=== PATIENT | female | born 1950 | race African-American/Black ===

== ENCOUNTER 2018-11-29 07:18 | Inpatient (IN) | payer OTHER ==
[2018-11-23 09:59] VITALS: BMI 42.5
--- NOTE | 2018-11-29 08:29 | HP ---
History & Physical Update - History History: No Change - Physical Physical: No Change - Assessment Assessment: No Change - Plan Plan: No Change
[2018-11-29] MEDS ORDERED: DEXAMETHASONE SOD PHOSPHATE/PF 10 MG/ML SDV ONE (11:27)
[2018-11-29] MEDS ORDERED: BUPIVACAINE LIPOSOME/PF (EXPAREL) 266 MG/20 ML VIAL ONE (11:28)
[2018-11-29] MEDS ORDERED: BUPIVACAINE HCL/PF (5 MG/ML) 30 ML VIAL IJ ONE ×2 (11:28→11:35)
[2018-11-29] MEDS ORDERED: MIDAZOLAM HCL 2 MG/2 ML SINGLE DOSE VIAL ONE ×2 (11:28→11:35)
[2018-11-29] MEDS ORDERED: THROMBIN (RECOMBINANT) 5,000 UNIT VIAL TP ONE (12:09)
[2018-11-29] MEDS ORDERED: GUM MASTIC/STORAX/MSAL/ALCOHOL 1 DRP DROPSBTL MC ONE (12:10)
[2018-11-29] MEDS ORDERED: DEXAMETHASONE SOD PHOSPHATE 4 MG/1 ML VIAL ONE (12:32)
[2018-11-29] MEDS ORDERED: ceFAZolin SODIUM 1 GM VIAL ONE (12:32)
[2018-11-29] MEDS ORDERED: ONDANSETRON 4 MG/2 ML VIAL ONE ×2 (12:32→15:08)
[2018-11-29] MEDS ORDERED: THROMBIN (BOVINE) 5,000 UNIT VIAL TP ONE (14:14)
[2018-11-29] MEDS ORDERED: GELATIN SPONGE,ABSORBABLE 1 GM PACKET TP ONE (14:14)
[2018-11-29] MEDS ORDERED: ONDANSETRON 4 MG/2 ML VIAL IVPUSH PRN (14:27)
[2018-11-29] MEDS ORDERED: KETOROLAC TROMETHAMINE 30 MG/1 ML VIAL IVPUSH PRN (14:27)
[2018-11-29] MEDS ORDERED: oxyCODONE HCL 5 MG TABLET PO PRN (14:27)
[2018-11-29] MEDS ORDERED: LACTATED RINGERS SOLUTION 1,000 ML IV SCH (14:30)
--- NOTE | 2018-11-29 14:44 | OP ---
Operative Note - Note: Operative Date: 11/29/18 Pre-Operative Diagnosis: lumbar spondylolisthesis Operation: posterior decompression, instrumentation, fusion, transforaminal interbody fusion of L4-L5 with neuromonitoring and allograft Surgeon: Ramesh Morris Director Marketing Analytics: Sue Pradhan Anesthesiologist/POST OFFICE MARKUP CLERK: Juni Gray Anesthesia: Spinal Estimated Blood Loss (mls): 20 Fluid Volume Replaced (mls): 600 Operative Report Dictated: Yes
--- NOTE | 2018-11-29 14:45 | SURG ---
Surgery Economics Instructor Note Economics Instructor: Sue Pradhan PA-C Date of Service: 11/29/18 Diagnosis: lumbar spondylolisthesis Procedure: posterior decompression, instrumentation, fusion, transforaminal interbody fusion of L4-L5 with neuromonitoring and allograft I was present for the entirety of the operative procedure. For further detail, please refer to operative report. Visit type - Case Type Case Type: Scheduled - Emergency Emergency Visit: No - New patient This patient is new to me today: Yes Date on this admission: 11/29/18
[2018-11-29] MEDS ORDERED: ACETAMINOPHEN 325 MG TABLET (FP) PO SCH ×2 (15:00→21:00)
[2018-11-29] MEDS ORDERED: ACETAMINOPHEN INJECTION 100 ML IVPB ONE (15:04)
[2018-11-29] MEDS: ACETAMINOPHEN 1000 MG/100 ML VIAL (NON FORMULARY) IVPB ONE ×2 (15:05→16:16)
[2018-11-29] MEDS ORDERED: diazePAM 2 MG TABLET ONE (15:08)
[2018-11-29] MEDS: diazePAM 2 MG TABLET PO SCH (16:17)
[2018-11-29] MEDS ORDERED: diazePAM 2 MG TABLET PO SCH (18:00)
[2018-11-29] MEDS: oxyCODONE HCL 5 MG TABLET PO PRN ×2 (18:03→21:54)
[2018-11-29] MEDS: CEFAZOLIN 1 GM/D5W 1 GM/50 ML BAG IVPB SCH (20:00)
[2018-11-29] MEDS: ACETAMINOPHEN 325 MG TABLET (FP) PO SCH (21:54)
[2018-11-29] MEDS: DOCUSATE SODIUM 100 MG CAPSULE (FP) PO SCH (21:54)
--- NOTE | 2018-11-29 23:03 | OP ---
DATE OF OPERATION: 11/29/2018 PREOPERATIVE DIAGNOSES: 1. Spinal stenosis, L4-L5. 2. Spondylolisthesis, L4-L5. POSTOPERATIVE DIAGNOSES: 1. Spinal stenosis, L4-L5. 2. Spondylolisthesis, L4-L5. PROCEDURE PERFORMED: 1. Transforaminal lumbar interbody fusion, L4-L5. 2. Placement of instrumentation at L4-L5. 3. Placement of interbody cage. SURGEON: Ramesh Morris MD INVESTIGATION DIVISION CAPTAIN: VAHID Leal ESTIMATED BLOOD LOSS: 50 mL. INTRAVENOUS FLUIDS: Per Anesthesia. ANESTHESIA: Spinal/TLIF block. COMPLICATIONS: There were none. DISPOSITION: Patient brought to the PACU in stable condition. INDICATION FOR SURGERY: The patient is a 68-year-old female who has been suffering from pain from her back down to her legs. X-rays and MRI were completed, which showed that she has a spondylolisthesis at L4-L5 contributing to stenosis at the level. She had gone through an exhaustive course of treatment for this, which included medications, physical therapy as well as injections. Unfortunately, her pain continued to persist despite all this. At this point, risks, benefits, alternatives discussed and the patient consented to surgery. The patient was brought to the operating room by the Anesthesia Staff. After appropriate patient identification was performed, spinal anesthesia was given. A TLIF block was also given. The patient was able to position herself prone onto the OR table with all areas of bony prominence well-padded at this time. The C-arm was brought in and the L4 and L5 pedicles marked off. Her back was prepped and draped in a sterile manner. When timeout was completed, incisions were made bilaterally over the L4 and L5 pedicles. Dissection was carried down to underlying fascia. Fascia was then split open at this time and the appropriate retractors then placed in. Using C-arm guidance, trocars were then advanced into both the L4 and L5 pedicles. Through the trocar, a wire was inserted. Over the wire, a tap and screw was inserted. On the left-hand side, retractor was placed and set up to expose the L4-L5 facet joint. This was confirmed with an osteotome. The facet joint was removed. The disk was entered using a series of pituitaries, Kerrisons, and curettes. Diskectomy was completed. The endplates were decorticated at this time, bone graft was laid down. A cage full of bone graft was placed in. Tulip heads were placed over the screws. A colten was measured and placed endcaps and compression was applied. On the right-hand side, a colten was measured and placed endcaps and compression was applied. AP and lateral x-rays confirmed instrumentation to be in good position. The fascia was closed with a No. 1 Vicryl suture, subcutaneous tissue closed with 2-0 Vicryl suture, skin was closed with 3-0 Monocryl suture. Dermabond was applied, Steri-Strips were applied, sterile dressing was applied. The patient was placed supine on her bed and brought to the PACU in stable condition. Nel GENTILE/[id number] MTDD
[2018-11-30] MEDS: CEFAZOLIN 1 GM/D5W 1 GM/50 ML BAG IVPB SCH (01:19)
[2018-11-30] MEDS: oxyCODONE HCL 5 MG TABLET PO PRN (02:08)
[2018-11-30] MEDS: ACETAMINOPHEN 325 MG TABLET (FP) PO SCH ×2 (02:09→09:05)
[2018-11-30] MEDS: diazePAM 2 MG TABLET PO SCH (04:12)
[2018-11-30 07:05] VITALS: BP 124/60; PULSE 86; TEMP 98.2
[2018-11-30 08:13] LABS: HEMATOCRIT 38.3 % (32.4-45.2); HEMOGLOBIN 12.2 GM/dl (10.7-15.3); MCH 23.7 pg (25.7-33.7); MCHC 31.9 g/dl (32.0-36.0); MEAN CELL VOLUME 74.4 fl (80-96); MEAN PLT VOLUME 10.1 fl (7.5-11.1); PLATELET COUNT 199 K/MM3 (134-434); RBC 5.15 M/mm3 (3.60-5.2); RDW 14.3 % (11.6-15.6); WHITE BLOOD COUNT 11.8 K/mm3 (4.0-10.8)
--- NOTE | 2018-11-30 08:14 | DS ---
Physical Exam: SUBJECTIVE: Patient seen and examined this am oob to chair/ambulating with assistance yesterday. Voiding without difficulty. No CP/SOB. OBJECTIVE: Vital Signs Temperature 98.2 F 11/30/18 06:00 Pulse Rate 86 11/30/18 06:00 Respiratory Rate 18 11/30/18 06:00 Blood Pressure 124/60 11/30/18 06:00 O2 Sat by Pulse Oximetry (%) 99 11/30/18 07:04 PHYSICAL EXAM GENERAL: The patient is awake, alert, and fully oriented, in no acute distress. LUNGS: Breath sounds equal, clear to auscultation bilaterally. HEART: Regular rate and rhythm. ABDOMEN: Soft, nontender, nondistended. EXTREMITIES: 2+ pulses, warm, well-perfused, no edema. 5/5 dorsi/plantar flexion b/l. NEUROLOGICAL: Normal speech, gait not observed. PSYCH: Normal mood, normal affect. BACK: Dressing changed this am. Dried blood on inferior aspect. Steri-strips in place. No ecchymosis or masses noted. 4x4 gauze and tegaderm reapllied. LABS CBC, BMP 11/30/18 07:10 11/30/18 07:10 HOSPITAL COURSE: The patient was admitted to the Med-Surg Unit after an elective repair of their lumbar spondylolisthesis. Now, s/p L4-L5 TLIF. The day of surgery, the patient ambulated the hallways with assistance. Narcotic and non-narcotic pain management control was achieved with an oral and IV approach. An xray was obtained and confirmed hardware placement at L4-L5, no fractures or dislocations. Mckayla-operative IV ABX were administered. DVT prophylaxis was achieved with SCDs and early ambulation. The patient ambulated with Physical Therapy and no services were recommended upon discharge. Narcotic scripts and or muscle relaxants were checked with [facility] prior to escibe. The discharge instructions and an oral pain management plan were reviewed with the patient. All questions answered. Above plan discussed with Dr. Morris and agreed. Date of Admission:11/29/18 Date of Discharge: 11/30/18 Minutes to complete discharge: 20 <Sue Pradhan - Last Filed: 11/30/18 15:17> Physical Exam: SUBJECTIVE: Patient seen and examined OBJECTIVE: Vital Signs Temperature 98.2 F 11/30/18 06:00 Pulse Rate 86 04/30/19 06:00 Respiratory Rate 18 11/30/18 09:03 Blood Pressure 124/60 11/30/18 06:00 O2 Sat by Pulse Oximetry (%) 99 11/30/18 09:03 PHYSICAL EXAM GENERAL: The patient is awake, alert, and fully oriented, in no acute distress. HEAD: Normal with no signs of trauma. EYES: PERRL, extraocular movements intact, sclera anicteric, conjunctiva clear. ENT: Ears normal, nares patent, oropharynx clear without exudates, moist mucous membranes. NECK: Trachea midline, full range of motion, supple. LUNGS: Breath sounds equal, clear to auscultation bilaterally, no wheezes, no crackles, no accessory muscle use. HEART: Regular rate and rhythm, S1, S2 without murmur, rub or gallop. ABDOMEN: Soft, nontender, nondistended, normoactive bowel sounds, no guarding, no rebound, no hepatosplenomegaly, no masses. EXTREMITIES: 2+ pulses, warm, well-perfused, no edema. NEUROLOGICAL: Cranial nerves II through XII grossly intact. Normal speech, gait not observed. PSYCH: Normal mood, normal affect. SKIN: Warm, dry, normal turgor, no rashes or lesions noted. LABS CBC,CMP WBC 11.8 K/mm3 (4.0-10.8) H 11/30/18 07:10 RBC 5.15 M/mm3 (3.60-5.2) 11/30/18 07:10 Hgb 12.2 GM/dl (10.7-15.3) 11/30/18 07:10 Hct 38.3 % (32.4-45.2) 11/30/18 07:10 MCV 74.4 fl (80-96) L 11/30/18 07:10 MCH 23.7 pg (25.7-33.7) L 11/30/18 07:10 MCHC 31.9 g/dl (32.0-36.0) L 11/30/18 07:10 RDW 14.3 % (11.6-15.6) 11/30/18 07:10 Plt Count 199 K/MM3 (134-434) 11/30/18 07:10 MPV 10.1 fl (7.5-11.1) 11/30/18 07:10 Sodium 139 mmol/L (136-145) 11/30/18 07:10 Potassium 4.3 mmol/L (3.5-5.1) 11/30/18 07:10 Chloride 102 mmol/L (98-107) 11/30/18 07:10 Carbon Dioxide 25 mmol/L (21-32) 11/30/18 07:10 Anion Gap 12 MMOL/L (8-16) 11/30/18 07:10 BUN 15 mg/dl (7-18) 11/30/18 07:10 Creatinine 0.7 mg/dl (0.55-1.3) 11/30/18 07:10 Creat Clearance w eGFR 82.97 (>60) 11/30/18 07:10 Random Glucose 145 mg/dl (74-106) H 11/30/18 07:10 Calcium 9.0 mg/dl (8.5-10) 11/30/18 07:10 HOSPITAL COURSE: Date of Admission:11/29/18 Date of Discharge: 11/30/18 Patient seen and examined this AM Agree with above D/C Planning <Ramesh Morris - Last Filed: 11/30/18 17:03> Visit type - Case Type Case Type: Scheduled - Emergency Emergency Visit: No - New patient This patient is new to me today: No <Sue Pradhan - Last Filed: 11/30/18 15:17>
[2018-11-30 08:29] LABS: ANION GAP 12 MMOL/L (8-16); BLOOD UREA NITROGEN 15 mg/dl (7-18); CHLORIDE 102 mmol/L (98-107); CO2 25 mmol/L (21-32); CREATININE 0.7 mg/dl (0.55-1.3); GLUCOSE,RANDOM 145 mg/dl (74-106); POTASSIUM 4.3 mmol/L (3.5-5.1); SODIUM 139 mmol/L (136-145)
[2018-11-30] MEDS ORDERED: DULoxetine HCL 30 MG CAPSULE.DR (FP) PO ONE (09:29)
[2018-11-30] MEDS: DOCUSATE SODIUM 100 MG CAPSULE (FP) PO SCH (09:40)
[2018-11-30] MEDS ORDERED: DULoxetine HCL 60 MG CAPSULE.DR PO SCH (10:00)
[2018-11-30] MEDS ORDERED: amLODIPine BESYLATE 10 MG TABLET (FP) PO SCH (10:00)
[2018-11-30] MEDS ORDERED: METOPROLOL TARTRATE 50 MG TABLET (FP) PO SCH (10:00)
[2018-11-30] MEDS ORDERED: ATORVASTATIN CA 40 MG TABLET (FP) PO SCH (10:00)
[2018-11-30] MEDS ORDERED: ISOSORBIDE MONONITRATE 60 MG TAB.SR.24H (FP) PO SCH (10:00)
== END 2018-11-30 10:35 | disposition home or self-care (01) | DRG 454 ==
LOC: FM/S 07:18
PROVIDERS: ADMIT Orthopaedic Surgery Orthopaedic Surgery of the Spine; ATTEND Orthopaedic Surgery Orthopaedic Surgery of the Spine
PROC: 0SG00J1 Fusion of Lumbar Vertebral Joint with Synthetic Substitute, Posterior Approach, Posterior Column, Open Approach (ICD-10-PCS; 2018-11-29)
PROC: 0SB20ZZ Excision of Lumbar Vertebral Disc, Open Approach (ICD-10-PCS; 2018-11-29)
PROC: 4A1104G Monitoring of Peripheral Nervous Electrical Activity, Intraoperative, Open Approach (ICD-10-PCS; 2018-11-29)
PROC: 0SG00AJ Fusion of Lumbar Vertebral Joint with Interbody Fusion Device, Posterior Approach, Anterior Column, Open Approach (ICD-10-PCS; principal; 2018-11-29 12:56)
DX: M43.16 Spondylolisthesis, lumbar region (principal); Z68.41 Body mass index [BMI] 40.0-44.9, adult; M48.061 Spinal stenosis, lumbar region without neurogenic claudication; I10 Essential (primary) hypertension; R73.03 Prediabetes; E66.9 Obesity, unspecified; I25.10 Atherosclerotic heart disease of native coronary artery without angina pectoris; Z95.1 Presence of aortocoronary bypass graft; E78.00 Pure hypercholesterolemia, unspecified
CPT/HCPCS: 36415; 72100-TC-FY; 76000-TC-FY; 80048; 85027; 94760; 97116-GP; 97162-GP; J0131